=== PATIENT | female | born 1935 | race American Indian/Alaskan Native ===

== ENCOUNTER 2023-01-23 12:16 | Emergency (ER) | payer OTHER ==
[2023-01-23 12:21] VITALS: TEMP 98.6; BMI 21.4
[2023-01-23 14:56] LABS: BASO % 0.6 % (0-2.0); EOS % 0.1 % (0-4.5); HEMATOCRIT 35.4 % (32.4-45.2); HEMOGLOBIN 11.6 GM/dL (10.7-15.3); LYMPH % 14.6 % (8-40); MCH 28.8 pg (25.7-33.7); MCHC 32.8 g/dl (32.0-36.0); MEAN CELL VOLUME 87.9 fl (80-96); MEAN PLT VOLUME 8.5 fl (7.5-11.1); MONO % 11.4 % (3.8-10.2); NEUT % 73.3 % (42.8-82.8); PLATELET COUNT 256 10^3/uL (134-434); RBC 4.03 M/mm3 (3.60-5.2); WHITE BLOOD COUNT 7.9 K/mm3 (4.0-10.0)
[2023-01-23 15:16] LABS: ALBUMIN 3.4 g/dl (3.4-5.0); BLOOD UREA NITROGEN 16.1 mg/dL (7-18); CALCIUM 8.5 mg/dL (8.5-10.1)
[2023-01-23 15:19] LABS: CREATININE 1.1 mg/dL (0.55-1.3)
[2023-01-23 15:22] LABS: BILIRUBIN,TOTAL 0.4 mg/dL (0.2-1); TOT PROT 6.5 g/dl (6.4-8.2)
[2023-01-23 16:55] VITALS: BP 110/69; PULSE 62; RESP 18
== END 2023-01-23 17:02 | disposition home or self-care (01) ==
LOC: JER 12:16
DX: U07.1 COVID-19 (principal); R05.9 Cough, unspecified; R50.9 Fever, unspecified
CPT/HCPCS: 0241U-QW; 36415; 71046-TC-FY; 80053; 84484; 85025; 87040; 93005; 93010; 99285-25